=== PATIENT | female | born 1965 | race Caucasian/White ===

== ENCOUNTER 2023-08-26 05:55 | Day surgery (SDC) | payer OTHER ==
[2023-08-20 10:16] VITALS: BP 139/79
[~2023-08-26] VITALS: Ht 165.1 cm; Wt 72.7 kg
[~2023-08-26 05:55] MED LIST: ALEVE220 M1 PO; BENADRYL25 MG PO; DILAUDID2 MG; LEVOTHYROXINE50 MCG PO; LEXAPRO20 MG PO; MAGNESIUM OXID250 MG PO; MINIVELLE1 EAC1 TD; MINIVELLE1 EACH TD; MOTRIN800 MG PO; MULTIVITAMINS1 EAC7 PO; PROMETRIUM200 MG PO; SYNTHROID25 MCG PO; TYLENOL EXTRA500 MG PO; ULTRAM50 MG PO; VITAMIN E400 UNI1 PO
[2023-08-26 06:13] VITALS: BP 133/70
--- NOTE | 2023-08-26 07:42 | NUR ---
DS ROUNDS. PT GONE FOR PROCEDURE. PROVIDED SILENT PRAYER.
--- NOTE | 2023-08-26 11:04 | NUR ---
08/26/23 1104 Francine Barnett 1051: PATIENT ARRIVES IN PACU ON ROOM AIR. SHE IS RESPONSIVE TO QUIET VOICE. SHE DENIES PAIN. 1103: RIGHT SURGICAL BOOT IS REMOVED IN PREPARATION FOR XRAY.
[2023-08-26 11:29] VITALS: BP 128/68
--- NOTE | 2023-08-26 11:32 | NUR ---
LE 1122: PT IS BACK TO DS FROM PACU. SHE IS A/O. CALL LIGHT WITHIN REACH. WATER ON BEDSIDE TABLE. DC CRITERIA REVIEWED.
--- NOTE | 2023-08-26 12:11 | NUR ---
1200: PT USES CALL LIGHT APPROPRIATELY WITH REQUEST TO VOID. SCDS REMOVED. PT DANGLES AT THE BEDSIDE, JESSICA WELL. DENIES DIZZINESS AND SOB. PIVOTS TO COMMODE WITH ASSIST FROM THIS RN. SUCCESSFUL FIRST POSTOP VOID, 800ML. PIVOTS BACK TO STRETCHER AND REMAINS IN SEMI ARZATE'S. ATTENTIVE AT THE BEDSIDE. CALL LIGHT WITHIN REACH
[2023-08-26 12:34] VITALS: BP 118/66
--- NOTE | 2023-08-26 13:24 | NUR ---
1230: PT AWAKE AND ALERT IN STRETCHER. VSS, RESP EVEN AND UNLABORED. DENIES PAIN AND NAUSEA. CMS WNL. PT WITH DESIRE TO DC. SL REMOVED WITH CATH TIP INTACT AND PRESSURE APPLIED TO SITE, WNL. SAT UP AT THE BEDSIDE AND TO DRESS FOR DC WITH 'S ASSISTANCE 1245: DC INSTRUCTIONS PROVIDED AND DISCUSSED ORDERED. PT VOICES UNDERSTANDING AND DENIES QUESTIONS AND CONCERNS AT THIS TIME. WHEELED OFF OF UNIT IN WC BY THIS RN. PIVOTS TO PASSENGER SIDE ON NON OPERATIVE FOOT APPROPRIATELY. NO PHYSICAL S/S OF DISTRESS
--- NOTE | 2023-08-26 18:01 | EKG ---
[facility] [address] [place], [place] [address] Signed Normal sinus rhythm Normal ECG No previous ECGs available Confirmed by THEODORE DHALIWAL MD ([id number]) on 08/26/2023 6:01:18 PM Electronically Signed By: THEODORE DHALIWAL 08/26/23 1801 PATIENT NAME: CHUY LARSON GUERA Electrocardiogram DATE OF : 63 PHYSICIAN: THEODORE DHALIWAL REPORT #: [id number] REPORT IS CONFIDENTIAL AND NOT TO BE RELEASED WITHOUT AUTHORIZATION
--- NOTE | 2023-08-31 12:10 | OR ---
[facility] [address], [place] [address] Signed DATE OF OPERATION: 08/26/2023 SURGEON: Heriberto Pastrana DPM PREOPERATIVE DIAGNOSES: 1. Hallux abducto valgus with hypermobility, right foot. 2. Long second metatarsal. POSTOPERATIVE DIAGNOSES: 1. Hallux abducto valgus with hypermobility, right foot. 2. Long second metatarsal. PROCEDURE: 1. Lapidus bunionectomy with locking screws and locking plate, right foot. 2. Second metatarsal shortening osteotomy. HALF SECTION IRONER: Thony Peace DPM NURSE LACEWORKER: Horacio Du. ANESTHESIA: Popliteal block with general. HEMOSTASIS: With an ankle tourniquet. ESTIMATED BLOOD LOSS: Approximately 5 mL or minimal. MATERIALS UTILIZED: 1. One Lapidus locking plate with screws manufacture is [id number] and then also one 2.7 Synthes screw for the second metatarsal. 2. 3-0 Vicryl, 4-0 Vicryl, 5-0 nylon also a locking plate with screws for the first metatarsal and then also a 2.7 Synthes solid screw for the second metatarsal. PROCEDURE IN DETAIL: The patient was brought into the operating room and placed upon the operating table in the supine position. A popliteal regional block had been performed in the preoperative PATIENT NAME: CHUY LARSON OPERATIVE REPORT DATE OF : 63 REPORT #: [id number] PHYSICIAN: HERIBERTO PASTRANA DPM PCP: JOSSELIN CARVALHO MD REPORT IS CONFIDENTIAL AND NOT TO BE RELEASED WITHOUT AUTHORIZATION [facility] [address] [place], [place] [address] Signed area by Anesthesia and general anesthesia was then administered following positioning of the patient. The patient's right foot was then scrubbed, draped and prepped in the usual sterile technique. An Esmarch bandage was utilized to exsanguinate the patient's right foot. Then left wrapped around the ankle to act as tourniquet. Attention was then directed to the dorsal aspect of the patient's right first metatarsophalangeal joint region where approximately a 5 cm linear incision was performed both parallel and medial to the tendon of the extensor hallucis longus. Incision was then deepened down to the subcutaneous tissue with care being taken to identify and retract vital neurovascular structures. Bleeders were cauterized and ligated this necessary. Careful dissection continued down to the level of the joint capsule utilizing a 64 blade. A 64 blade was then utilized to perform a linear capsulotomy and the joint capsule was reflected from the medial aspect of the patient's first metatarsal, thus exposing a bony eminence noted on the first metatarsal. Trabecular pattern was within normal limits. Density was also within normal limits. Sagittal saw was utilized to resect the portion of this bony eminence. Next, attention was then directed to the first intermetatarsal space region where both sharp and blunt dissection continued down to the level of the sesamoid apparatus as well as conjoint tendon of the abductor hallucis. A #64 blade was then utilized to perform a release of the fibular sesamoidal ligament and then also the conjoint tendon of the adductor hallucis. Next, the extensor hallucis brevis was then identified. A curved tenotomy was utilized to resect this tendon at the first metatarsal metaphyseal level. Soft tissue release performed. The first digit was easily manipulated in a proper positioning by pushing the metatarsal into more corrected position. Attention was then directed to the base of the first metatarsal. The incision of the skin was extended up to the first cuneiform metatarsal joint level. Both sharp and blunt dissection were performed down through the subcutaneous tissue into the joint capsule of the first metatarsal cuneiform. A 64 blade was utilized to perform a capsulotomy releasing the joint capsule. Next, the joint distractor was then placed with the K-wire being in the first cuneiform and the K-wire being in the first metatarsal. A joint space was distracted and to expose the articular cartilage surface. Sagittal saw was then utilized to remove the surface of the articular cartilage as well as the curved curette to remove the cartilage and I performed mild plaining for appropriate positioning of the first metatarsal. Upon completion of the joint preparation, the area was flushed with copious amounts of sterile normal saline. The K-wire was utilized to fenestrate adjacent aspects of the bone and the first metatarsal was then manipulated and pushed back into a more proper rectus position. The K-wire running from the first metatarsal and the first cuneiform was then placed. Following this pin placement, two more pins were then driven from the first metatarsal into the second metatarsal more distally to act as temporary fixation. Intraoperative x-ray fluoroscopy was utilized to verify positioning. Next, a locking plate from [id number] was then placed following standard AO fixation techniques. Measurements of screws were performed as well an intraoperative radiology fluoroscopy to make sure proper placement of plate and screws was achieved as well as proper length. Attention was then directed PATIENT NAME: CHUY LARSON OPERATIVE REPORT DATE OF : 63 REPORT #: [id number] PHYSICIAN: HERIBERTO PASTRANA DPM PCP: JOSSELIN CARVALHO MD REPORT IS CONFIDENTIAL AND NOT TO BE RELEASED WITHOUT AUTHORIZATION [facility] [address] [place], [place] [address] Signed to the dorsal aspect of the second metatarsal. A linear incision was performed over skin just medial to the extensor tendon. #64 blade was utilized to perform a dissection through the subcutaneous tissue down to the joint capsule, which was then released in the dorsal aspect of the second metatarsal exposed. A small sagittal blade was then utilized to perform a cylindrical osteotomy with two cuts creating a small wafer of bone, which was then excised. The head of the second metatarsal was then slightly retracted proximally into a more corrective position to restore good parabola of the lesser metatarsals. This was pinned with a K-wire and a 2.7 screw was then placed following standard AO fixation techniques. Good compression across the osteotomy was achieved. Areas of the surgical site were then flushed with copious amounts of sterile normal saline. 3-0 Vicryl was utilized to reapproximating and coapt the subcutaneous tissue on the bunion region and joint capsule. 4-0 Vicryl was utilized on both surgical sites to reapproximate and coapt subcutaneous tissue and also the joint capsule on the second metatarsal and 5-0 nylon was utilized to reapproximate and coapt the integument on both surgical sites utilizing the interlocking running suture technique. Postoperative injection consisting of 5 mL of 0.5% ropivacaine mixed with 1 mL of dexamethasone phosphate was injected above the surgical sites. The surgical sites were then dressed utilizing Betadine soaked gauze, fluff gauze, rolled gauze, cast padding and Coban. Please note that due to tourniquet time, the ankle tourniquet was removed following bunion procedure and the second metatarsal shortening procedure was performed . With placement of the dressings, the patient was then escorted to the recovery area with vital signs stable. Capillary refill time intact all digits of the right. The patient had tolerated the both procedure and the anesthesia well and following period of time, the patient was then discharged to home with both written and oral instructions. ROSIE Spear/STACY /[id number] Copies: ~ PATIENT NAME: CHUY LARSON OPERATIVE REPORT DATE OF : 63 REPORT #: [id number] PHYSICIAN: HERIBERTO PASTRANA DPM PCP: JOSSELIN CARVALHO MD REPORT IS CONFIDENTIAL AND NOT TO BE RELEASED WITHOUT AUTHORIZATION
== END 2023-08-26 12:45 | disposition home or self-care (01) ==
LOC: OPS 05:55 → DS 05:55 → OPS 07:00 → DS 07:00 → OPS 12:45
PROVIDERS: ATTEND Podiatrist Foot & Ankle Surgery
PROC: 0QSN04Z Reposition Right Metatarsal with Internal Fixation Device, Open Approach (ICD-10-PCS; 2023-08-26)
PROC: 0QBQ0ZZ Excision of Right Toe Phalanx, Open Approach (ICD-10-PCS; principal; 2023-08-26 07:00)
DX: M21.051 Valgus deformity, not elsewhere classified, right hip (principal); M20.5X1 Other deformities of toe(s) (acquired), right foot; Z88.5 Allergy status to narcotic agent; F17.210 Nicotine dependence, cigarettes, uncomplicated
CPT/HCPCS: 01480; 64447; 73630; 76942; 93005; 93010; C1713; J0131; J0690; J1100; J1885; J2001; J2250; J2405; J2704; J2795; J7121